=== PATIENT | female | born 1955 | race Caucasian/White ===

== ENCOUNTER 2017-09-20 15:45 | Emergency (ER) | payer OTHER ==
[2017-09-20] MEDS ORDERED: Bacitracin Zinc Ointment 30 gm TUBE ONE (16:19)
[2017-09-20] MEDS ORDERED: Adacel (T-DAP) 0.5 ML VIAL ONE (16:19)
[2017-09-20] MEDS ORDERED: Bacitracin Zinc 1 Packet ONE (16:20)
--- NOTE | 2017-09-20 17:32 | RAD ---
THREE VIEWS OF THE RIGHT SHOULDER: 09/20/17 COMPARISON: 06/27/15. HISTORY: Patient fell at [place] 30 minute ago with shoulder pain. FINDINGS: Three views of the right shoulder shows a fracture of the distal aspect of the clavicle which is mini josselyn displaced. No dislocation is seen. No fracture of the humerus or scapula is seen. The visualize d right thorax is unremarkable. IMPRESSION: Distal right clavicle fracture. POS: [facility]
== END 2017-09-20 16:48 | disposition home or self-care (01) ==
LOC: SCSER 15:45
DX: S42.031A Displaced fracture of lateral end of right clavicle, initial encounter for closed fracture (principal); S50.311A Abrasion of right elbow, initial encounter; F32.9 Major depressive disorder, single episode, unspecified; E03.9 Hypothyroidism, unspecified; Z79.01 Long term (current) use of anticoagulants; Z79.899 Other long term (current) drug therapy; W01.0XXA Fall on same level from slipping, tripping and stumbling without subsequent striking against object, initial encounter; Y92.830 Public park as the place of occurrence of the external cause; Y99.8 Other external cause status
CPT/HCPCS: 90471; 90715

== ENCOUNTER 2019-01-15 08:49 | Emergency (ER) | payer OTHER | END 2019-01-15 09:41 | disposition home or self-care (01) | LOC: ERS 08:49 | DX: S01.01XA Laceration without foreign body of scalp, initial encounter (principal); E03.9 Hypothyroidism, unspecified; F32.9 Major depressive disorder, single episode, unspecified; Z79.899 Other long term (current) drug therapy; W20.8XXA Other cause of strike by thrown, projected or falling object, initial encounter | CPT/HCPCS: 12001 ==

== ENCOUNTER 2019-04-05 13:36 | Outpatient (CLI) | payer MEDICARE, OTHER ==
--- NOTE | 2019-04-05 14:20 | MMO ---
Bilateral MAMMO Bilat Screen [facility]. CLINICAL HISTORY: Patient is 63 years old and is seen for screening. The patient has no family history of breast cancer. The patient has no personal history of cancer. The patient has a history of right needle biopsy at age 32 - benign. VIEWS: The views performed were: bilateral craniocaudal with tomosynthesis; bilateral mediolateral oblique with tomosynthesis; and left exaggerated craniocaudal. FILMS COMPARED: The present examination has been compared to prior imaging studies performed at [facility] on 06/25/2013, 07/15/2014, 09/29/2015 and 03/20/2017. This study has been interpreted with the assistance of computer-aided detection. MAMMOGRAM FINDINGS: There are scattered fibroglandular densities. There are no suspicious masses, suspicious calcifications, or new areas of architectural distortion. IMPRESSION: THERE IS NO MAMMOGRAPHIC EVIDENCE OF MALIGNANCY. A ROUTINE FOLLOW-UP MAMMOGRAM IN 1 YEAR IS RECOMMENDED. THE RESULTS OF THIS EXAM WERE SENT TO THE PATIENT. ACR BI-RADS Category 1 - Negative MAMMOGRAPHY NOTE: 1. A negative mammogram report should not delay a biopsy if a dominant of clinically suspicious mass is present. 2. Approximately 10% to 15% of breast cancers are not detected by mammography. 3. Adenosis and dense breasts may obscure an underlying neoplasm. Reported by: SEAN KUMAR MD Electonically Signed: [id number]
--- NOTE | 2019-04-05 14:37 | BD ---
DEXA BONE DENSITY SCAN: DATE: 04/05/2019. COMPARISON: None. HISTORY: Osteoporosis evaluation, postmenopausal female. FINDINGS: L1 0.944 -0.4 L2 1.0, 600.3 L3 1.046 -0.3 L4 1.101, 0.4 total 1.0, 420.0 femoral neck 0.703 -1.1 tota l 0.923 -0.2 Lumbar Spine: BMD (g/cm2) L1 0.944 T-Score: -0.4 L2 1.060 T-Score: 0.3 L3 1.046 T-Score: -0.3 L4 1.101 T-Score: 0.4 L1-L4 1.042 T-Score: 0.0 Femoral Neck: 0.703 T-Score: -1.1 Total Femur: 0.923 T-Score: -0.2 FRAX-WHO fracture risk assessment tool reports a 10-year fracture risk in an untreated patient at 7.3 % for major osteoporotic fracture and 0.8% for a hip fracture. IMPRESSION: Normal lumbar spine bone mineral density. Osteopenia of the femoral neck, correlating with a moderate ly increased risk for fracture. Transcribed Date/Time: 04/05/2019 2:59 PM
== END 2019-04-05 13:37 | disposition home or self-care (01) ==
LOC: BICMAMMO 13:36
PROVIDERS: ATTEND Nurse Practitioner Family
DX: Z12.31 Encounter for screening mammogram for malignant neoplasm of breast (principal); Z13.820 Encounter for screening for osteoporosis; M85.88 Other specified disorders of bone density and structure, other site
CPT/HCPCS: 77063; 77067; 77080

== ENCOUNTER 2020-05-01 10:50 | Outpatient (CLI) | payer MEDICARE ==
--- NOTE | 2020-05-01 11:48 | MRI ---
MR the lumbar spine without contrast: 05/01/2020 History: Low back pain with left lower extremity radiculopathy COMPARISON: None. TECHNIQUE: Multiplanar multisequence MR images were obtained of lumbar spine without IV contrast FINDINGS: On the basis of 5 lumbar type vertebral bodies, conus medullaris terminates at theL1-2 level. Sagittal STIR imaging demonstrates edematous degenerative endplate change centrally and laterally on the right at the L5-S1 level. T12-L1:Mild bilateral facet hypertrophy. No significant central canal or neural foraminal stenosis. L1-2:Mild bilateral facet hypertrophy. Disc space narrowing and mild anterior osteophyte formation wi th no significant central canal or neural foraminal stenosis. L2-3:Intervertebral disc height and signal intensity appears within normal limits. Mild bilateral fac et hypertrophy with no significant central canal or neural foraminal stenosis. L3-4:There is bilateral facet hypertrophy with fluid within bilateral facet joints. There is disc spa ce narrowing with disc desiccation and mild disc bulge. No significant central canal or neural foraminal stenosis. L4-5:Bilateral facet hypertrophy and hypertrophy of the ligamentum flavum noted. There is disc space narrowing with disc desiccation and mild disc bulge. Central annular tear. Mild c entral canal stenosis. No significant neural foraminal stenosis. We L5-S1:There is disc space narrowing and disc desiccation with left paracentral annular tear and assoc iated left paracentral disc protrusion. This causes prominent left lateral recess stenosis. Bilateral facet hypertrophy noted with no significant neural foraminal stenosis on the left and mild neural foraminal stenosis on the right. Image retroperitoneal structures demonstrateno acute findings. IMPRESSION: Left paracentral disc protrusion at L5-S1 with prominent left lateral recess stenosis.
== END 2020-05-01 10:51 | disposition home or self-care (01) ==
LOC: TBSIIMAG 10:50
PROVIDERS: ATTEND Nurse Practitioner Family
DX: M54.16 Radiculopathy, lumbar region (principal); M53.3 Sacrococcygeal disorders, not elsewhere classified; M51.27 Other intervertebral disc displacement, lumbosacral region; M48.07 Spinal stenosis, lumbosacral region; Z91.81 History of falling
CPT/HCPCS: 72148

== ENCOUNTER 2022-04-01 10:36 | Outpatient (CLI) | payer MEDICARE | END 2022-04-01 10:37 | disposition home or self-care (01) | LOC: BICMAMMO 10:36 | DX: Z12.31 Encounter for screening mammogram for malignant neoplasm of breast (principal); Z91.89 Other specified personal risk factors, not elsewhere classified | CPT/HCPCS: 77063; 77067 ==

== ENCOUNTER 2023-07-17 10:31 | Outpatient (CLI) | payer MEDICARE | END 2023-07-17 10:32 | disposition home or self-care (01) | LOC: BICMAMMO 10:31 | PROVIDERS: ATTEND Nurse Practitioner Family | DX: Z12.31 Encounter for screening mammogram for malignant neoplasm of breast (principal); Z13.820 Encounter for screening for osteoporosis; M85.89 Other specified disorders of bone density and structure, multiple sites; Z91.89 Other specified personal risk factors, not elsewhere classified; Z78.0 Asymptomatic menopausal state | CPT/HCPCS: 77063; 77067; 77080 ==